=== PATIENT | female | born 1985 | race American Indian/Alaskan Native ===

== ENCOUNTER 2016-09-11 15:52 | Emergency (ER) | payer SELFPAY ==
[2016-09-11 16:36] VITALS: BP 113/72
[2016-09-11] MEDS ORDERED: TORADOL IM ONE (19:23)
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
== END 2016-09-11 21:20 | disposition home or self-care (01) ==
LOC: ED 15:52
DX: S13.4XXA Sprain of ligaments of cervical spine, initial encounter (principal); V49.49XA Driver injured in collision with other motor vehicles in traffic accident, initial encounter; X58.XXXA Exposure to other specified factors, initial encounter; Y93.9 Activity, unspecified; Y92.9 Unspecified place or not applicable; Y99.8 Other external cause status
CPT/HCPCS: 96372; 99282; J1885